=== PATIENT | male | born 1980 | race Caucasian/White ===

== ENCOUNTER 2021-11-12 00:04 | Emergency (ER) | payer BC ==
[~2021-11-12] VITALS: Ht 177.8 cm; Wt 81.6 kg
[2021-11-12] MEDS ORDERED: ONDANSETRON HCL 4 MG/2 ML VIAL IVP ONE (00:15)
[2021-11-12] MEDS ORDERED: NACL 0.9% 1,000 ML IV ONE (00:15)
[2021-11-12] MEDS ORDERED: KETOROLAC TROMETHAMINE 30 MG VIAL IVP ONE (00:15)
[2021-11-12 00:33] VITALS: BP_SYST 114
--- NOTE | 2021-11-12 00:54 | NUR ---
Patient ambulatory to bed 5 for evaluation and treatment
[2021-11-12 01:15] LABS: CALCIUM 8.6 mg/dL (8.4-11.0); CREATININE 1.17 mg/dL (0.55-1.30); POTASSIUM 3.8 mmol/L (3.5-5.1)
[2021-11-12 01:20] LABS: ALBUMIN 3.2 g/dL (3.4-4.8); TOTAL BILIRUBIN 0.2 mg/dL (0.0-1.0)
--- NOTE | 2021-11-12 01:27 | NUR ---
Jnenifer zepeda in ED - 11/12/21 at 0132 by [email or web address] PT ARRIVED D/T ALOC STARTED TODAY AND NO C/O CP AND NO RESP DISTRESS, NO FEVER NOTED, CARE RESUMED, DR. HDZ
--- NOTE | 2021-11-12 01:30 | NUR ---
Jennifer zepeda in [facility] - 11/12/21 at 0131 by [email or web address] IV STARTED TOOL GRINDER 18G LAC BY EMS
[2021-11-12 01:31] LABS: HEMOGLOBIN 14.7 g/dL (14.0-18.0); WHITE BLOOD COUNT (AUTO) 6.3 K/uL (4.8-10.8)
[2021-11-12 02:06] LABS: BASOPHILS # (AUTO) 0.1 K/uL (0.0-0.2); EOSINOPHILS # (AUTO) 0.3 K/uL (0.0-0.4); EOSINOPHILS % (AUTO) 5.5 % (0.0-4.0); HEMATOCRIT 44.8 % (36-54); LYMPHOCYTES # (AUTO) 1.9 K/uL (1.0-5.5); LYMPHOCYTES % (AUTO) 30.3 % (20.5-51.5); MEAN CORPUSCULAR HEMOGLOBIN 29 pg (27-31); MEAN CORPUSCULAR HGB CONC 33 % (32-36); MEAN CORPUSCULAR VOLUME 89 fL (79.0-98.0); MONOCYTES # (AUTO) 0.5 K/uL (0.0-1.0); MONOCYTES % (AUTO) 8.3 % (1.7-9.3); NEUTROPHILS # (AUTO) 3.5 K/uL (1.8-7.7); NEUTROPHILS % (AUTO) 54.9 % (40.0-70.0); PLATELET COUNT (AUTO) 356 K/uL (130-430); RED BLOOD CELL COUNT(AUTO) 5.03 MIL/uL (4.2-6.2); RED CELL DISTRIBUTION WIDTH 14.9 % (9.0-15.0)
[2021-11-12] MEDS ORDERED: MAGNESIUM CITRATE 300 ML ORAL SOLUTION PO ONE (02:15)
[2021-11-12 02:23] VITALS: BP_SYST 117
[2021-11-12 02:25] LABS: BILIRUBIN,URINE NEGATIVE (NEGATIVE); BLOOD, URINE 2+ (NEGATIVE); CLARITY/URINE CLEAR (CLEAR); COLOR,URINE YELLOW (YELLOW); GLUCOSE,URINE TRACE (NEGATIVE); KETONES,URINE NEGATIVE (NEGATIVE); LEUKOCYTE ESTERASE ,URINE NEGATIVE (NEGATIVE); NITRITE, URINE NEGATIVE (NEGATIVE); PROTEIN URINE NEGATIVE (NEGATIVE)
== END 2021-11-12 02:23 | disposition home or self-care (01) ==
LOC: SED 00:04
DX: R10.9 Unspecified abdominal pain (principal)
CPT/HCPCS: 36415; 76376; 80053; 81003; 85025; 99284

== ENCOUNTER 2021-11-18 15:25 | Emergency (ER) | payer BC ==
[~2021-11-18] VITALS: Ht 177.8 cm; Wt 81.6 kg
[2021-11-18 15:25] VITALS: BP_SYST 149
--- NOTE | 2021-11-18 15:25 | NUR ---
BROUGHT BACK TO BED #8 AND TRIAGED. REPORT GIVEN TO CASSIE
--- NOTE | 2021-11-18 15:40 | NUR ---
Pt came in with c/o right flank pain at 5/10 since last monday. He states the pain comes with movement and is tolerable. Pt has a history of kidney stones and passed one 9 months ago. He also has a history of shingles and is not taking any home medications. Pt is connected to monitor and safety precautions are in place.
--- NOTE | 2021-11-18 15:42 | NUR ---
DR LEWIS AT BEDSIDE FOR EVALUATION
[2021-11-18] MEDS ORDERED: KETOROLAC TROMETHAMINE 60 MG/2 ML VIAL IM ONE (15:45)
--- NOTE | 2021-11-18 16:03 | NUR ---
Ultrasound being done at bedside.
--- NOTE | 2021-11-18 16:03 | NUR ---
Urine dip completed and results updated.
[2021-11-18] MEDS ORDERED: IBUP-1969 PO (16:54)
[2021-11-18] MEDS ORDERED: TAMS-11 PO (16:54)
[2021-11-18] MEDS ORDERED: METH-634 PO (16:54)
[2021-11-18 17:05] VITALS: BP_SYST 134
--- NOTE | 2021-11-18 17:05 | NUR ---
Patient given written and verbal discharge instructions and verbalizes understanding. ER MD discussed with patient the results and treatment provided. Patient in stable condition. ID arm band removed. Rx of Ibuprofen, Flomax, and Carbamezapine given. Patient educated on pain management and to follow up with PMD. Pain Scale . Opportunity for questions provided and answered. Medication side effect fact sheet provided.
== END 2021-11-18 17:05 | disposition home or self-care (01) ==
LOC: SED 15:25
DX: N23 Unspecified renal colic (principal); M54.50 Low back pain, unspecified
CPT/HCPCS: 76770; 81002; 96372; 99284; J1885